=== PATIENT | male | born 1995 | race American Indian/Alaskan Native ===

== ENCOUNTER 2021-09-14 19:51 | Inpatient (IN) | payer SELFPAY ==
[2021-09-14] MEDS ORDERED: SODIUM CHLORIDE 0.9% 1000 ML 1,000 ML IV ONE (20:20)
[2021-09-14] MEDS ORDERED: cefTRIAXone/NS 2 GM/100 ML 2 GM/100 ML BAG IV ONE (20:20)
--- NOTE | 2021-09-14 20:35 | Emergency Department Report ---
ED Extremity Problem HPI - General Chief complaint: Extremity Injury, Lower Stated complaint: SWOLLEN RT CALF Time Seen by Provider: 09/14/21 20:16 Source: patient Mode of arrival: Ambulatory Limitations: No Limitations - History of Present Illness Initial comments: Patient is a 25-year-old male with a history of morbid obesity who presents emergency room with complaints of right calf pain and swelling that began 4 days ago. He states that a small blister appeared to the back of his calf and opened and drained on its own. He states it was clear fluid. He denies ever having this in the past. He denies injuring himself or being cut by anything. He denies any numbness or weakness. Patient states that he was running a fever at home but he reports he took Tylenol prior to arrival which she states improved his fever. No other past medical history. He denies any medication allergies. Severity scale (0 -10): 5 - Related Data Allergies Allergy/AdvReac Type Severity Reaction Status Date / Time No Known Allergies Allergy Verified 09/14/21 21:57 ED Review of Systems ROS: Stated complaint: SWOLLEN RT CALF Other details as noted in HPI Comment: All other systems reviewed and negative ED Past Medical Hx - Past Medical History Previous Medical History?: Yes Additional medical history: morbid obesity - Surgical History Past Surgical History?: No ED Physical Exam - General Limitations: No Limitations General appearance: alert, in no apparent distress - Head Head exam: Present: atraumatic, normocephalic - Eye Eye exam: Present: normal appearance - ENT ENT exam: Present: mucous membranes moist - Respiratory Respiratory exam: Present: normal lung sounds bilaterally. Absent: respiratory distress, wheezes, rales, rhonchi, stridor, chest wall tenderness, accessory muscle use, decreased breath sounds, prolonged expiratory - Cardiovascular Cardiovascular Exam: Present: regular rate, normal rhythm, normal heart sounds. Absent: systolic murmur, diastolic murmur, rubs, gallop - Extremities Exam Extremities exam: Present: other (there is a 3 cm shallow ulcer present to the right posterior calf, there is significant edema, induration, erythema present to the right calf, FROM, neurovascularly intact) - Neurological Exam Neurological exam: Present: alert, oriented X3 - Psychiatric Psychiatric exam: Present: normal affect, normal mood - Skin Skin exam: Present: warm, dry ED Course Vital Signs 09/14/21 20:08 Temperature 99.5 F Pulse Rate 102 H Respiratory 24 Rate Blood Pressure 136/79 [Right] O2 Sat by Pulse 100 Oximetry - Consultations Consultation #1: 09/14/21 21:[address] Eastman, hospitalist regarding pt presentation and results, will accept and resume care of patient, will admit to hospitalist service, advised to give zosyn instead of ceftriaxone, abx was changed. ED Medical Decision Making - Lab Data Result diagrams: 09/14/21 20:29 09/14/21 20:29 Lab Results 09/14/21 09/14/21 09/14/21 Range/Units 20:29 20:29 20:29 WBC 13.6 H (4.5-11.0) K/mm3 RBC 4.70 (3.65-5.03) M/mm3 Hgb 12.7 (11.8-15.2) gm/dl Hct 38.5 (35.5-45.6) % MCV 82 L (84-94) fl MCH 27 L (28-32) pg MCHC 33 (32-34) % RDW 13.9 (13.2-15.2) % Plt Count 352 (140-440) K/mm3 Add Manual Diff Complete Total Counted 100 Seg Neuts % (Manual) 89.0 H (40.0-70.0) % Band Neutrophils % 1.0 % Lymphocytes % (Manual) 6.0 L (13.4-35.0) % Monocytes % (Manual) 3.0 (0.0-7.3) % Eosinophils % (Manual) 1.0 (0.0-4.3) % Nucleated RBC % Not Reportable Seg Neutrophils # Man 12.1 H (1.8-7.7) K/mm3 Band Neutrophils # 0.1 K/mm3 Lymphocytes # (Manual) 0.8 L (1.2-5.4) K/mm3 Abs React Lymphs (Man) 0.0 K/mm3 Monocytes # (Manual) 0.4 (0.0-0.8) K/mm3 Eosinophils # (Manual) 0.1 (0.0-0.4) K/mm3 Basophils # (Manual) 0.0 (0.0-0.1) K/mm3 Metamyelocytes # 0.0 K/mm3 Myelocytes # 0.0 K/mm3 Promyelocytes # 0.0 K/mm3 Blast Cells # 0.0 K/mm3 WBC Morphology Not Reportable Hypersegmented Neuts Not Reportable Hyposegmented Neuts Not Reportable Hypogranular Neuts Not Reportable Smudge Cells Not Reportable Toxic Granulation Not Reportable Toxic Vacuolation Not Reportable Dohle Bodies Not Reportable Pelger-Huet Anomaly Not Reportable Radha Rods Not Reportable Platelet Estimate Appears normal Clumped Platelets Not Reportable Plt Clumps, EDTA Not Reportable Large Platelets Not Reportable Giant Platelets Not Reportable Platelet Satelliting Not Reportable Plt Morphology Comment Not Reportable RBC Morphology Not Reportable Dimorphic RBCs Not Reportable Polychromasia Not Reportable Hypochromasia Not Reportable Poikilocytosis Not Reportable Anisocytosis Not Reportable Microcytosis Not Reportable Macrocytosis Not Reportable Spherocytes Not Reportable Pappenheimer Bodies Not Reportable Sickle Cells Not Reportable Target Cells Not Reportable Tear Drop Cells Not Reportable Ovalocytes Not Reportable Helmet Cells Not Reportable Aqu[place] Bodies Not Reportable [place] Rings Not Reportable [place] Cells Not Reportable Bite Cells Not Reportable Crenated Cell Not Reportable Elliptocytes Not Reportable Acanthocytes (Spur) Not Reportable Rouleaux Not Reportable Hemoglobin C Crystals Not Reportable Schistocytes Not Reportable Malaria parasites Not Reportable Rene Bodies Not Reportable Hem Pathologist Commnt No Sodium 135 L (137-145) mmol/L Potassium 3.6 (3.6-5.0) mmol/L Chloride 98.3 (98-107) mmol/L Carbon Dioxide 23 (22-30) mmol/L Anion Gap 17 mmol/L BUN 9 (9-20) mg/dL Creatinine 0.9 (0.8-1.3) mg/dL Estimated GFR > 60 ml/min BUN/Creatinine Ratio 10 % Glucose 93 (75-100) mg/dL Lactic Acid 0.90 (0.7-2.0) mmol/L Calcium 9.1 (8.4-10.2) mg/dL Total Bilirubin 0.90 (0.1-1.2) mg/dL AST 32 (5-40) units/L ALT 45 (7-56) units/L Alkaline Phosphatase 99 (35-129) units/L Total Protein 9.0 H (6.3-8.2) g/dL Albumin 3.5 L (3.9-5) g/dL Albumin/Globulin Ratio 0.6 % - Radiology Data Radiology results: report reviewed Ordering Physician: FELICITY ZHAO Date of Service: 09/14/21 Procedure(s): XR tibia fibula 2V RT Accession Number(s): [id number] cc: FELICITY ZHAO Fluoro Time In Minutes: RIGHT TIBIA-FIBULA 2 VIEW(S) INDICATION / CLINICAL INFORMATION: right leg wound COMPARISON: None available. FINDINGS: BONES / JOINT(S): No acute fracture or subluxation. No significant arthritis. SOFT TISSUES: No significant abnormality. ADDITIONAL FINDINGS: None. Signer Name: Hector Gonzalez DO Signed: 09/14/2021 9:03 PM Workstation Name: [id number] Transcribed By: SAWYER Dictated By: HECTOR GONZALEZ DO Electronically Authenticated By: HECTOR GONZALEZ DO Signed Date/Time: 09/14/212102 DD/ 02 TD/TT: Ordering Physician: FELICITY ZHAO Date of Service: 09/14/21 Procedure(s): VL venous duplex LE RT Accession Number(s): [id number] cc: FELICITY ZHAO DUPLEX DOPPLER LOWER EXTREMITY VEINS, RIGHT INDICATION / CLINICAL INFORMATION: right leg swelling. TECHNIQUE: Duplex doppler imaging was performed through the veins of the right lower extremity using venous compression and other maneuvers. COMPARISON: None available. FINDINGS: RIGHT COMMON FEMORAL VEIN: Negative. RIGHT FEMORAL VEIN: Negative at the proximal level and not well evaluated distal to the proximal level. RIGHT POPLITEAL VEIN: Not well evaluated RIGHT CALF VEINS: Not well evaluated ADDITIONAL FINDINGS: Secondary to patient's swelling and body habitus large portion of the right leg is not well seen. IMPRESSION: 1. No sonographic evidence of DVT in the right common femoral or right proximal superficial femoral vein. Evaluation distal to this is limited secondary to swelling body habitus. Signer Name: Hector Gonzalez DO Signed: 09/14/2021 9:41 PM Workstation Name: [id number] Transcribed By: SAWYER Dictated By: HECTOR GONZALEZ DO Electronically Authenticated By: HECTOR GONZALEZ DO Signed Date/Time: 09/14/212140 DD/ 38 TD/TT: - Medical Decision Making Patient is a 25-year-old male with a history of morbid obesity who presents emergency room with complaints of right calf pain and swelling that began 4 days ago. He states that a small blister appeared to the back of his calf and opened and drained on its own. He states it was clear fluid. He denies ever having this in the past. He denies injuring himself or being cut by anything. He denies any numbness or weakness. Patient states that he was running a fever at home but he reports he took Tylenol prior to arrival which she states improved his fever. No other past medical history. He denies any medication allergies. Vitals with very mild tachycardia, otherwise stable. On exam:there is a 3 cm shallow ulcer present to the right posterior calf, there is significant edema, induration, erythema present to the right calf, FROM, neurovascularly intact. XR right lower leg: BONES / JOINT(S): No acute fracture or subluxation. No significant arthritis. SOFT TISSUES: No significant abno rmality. ADDITIONAL FINDINGS: None. doppler US: 1. No sonographic evidence of DVT in the right common femoral or right proximal superficial femoral vein. Evaluation distal to this is limited secondary to swelling body habitus. Patient needs admission for cellulitis, ordered IV antibiotics. Discussed case with Dr. Mora, ER attending who is agreeable with plan and agrees that patient needs to be admitted for IV antibiotic therapy. spoke to Dr. Eastman, hospitalist regarding pt presentation and results, will accept and resume care of patient, will admit to hospitalist service, advised to give zosyn instead of ceftriaxone, abx was changed. pt is agreeable with admission. Critical care attestation.: If time is entered above; I have spent that time in minutes in the direct care of this critically ill patient, excluding procedure time. ED Disposition Clinical Impression: Cellulitis Qualifiers: Site of cellulitis: extremity Site of cellulitis of extremity: lower extremity Laterality: right Qualified Code(s): L03.115 - Cellulitis of right lower limb Leg pain Qualifiers: Laterality: right Qualified Code(s): M79.604 - Pain in right leg Leukocytosis Qualifiers: Leukocytosis type: unspecified Qualified Code(s): D72.829 - Elevated white blood cell count, unspecified Disposition: 02 [facility]ORT TERM [facility] Is pt being admited?: Yes Does the pt Need Aspirin: No Condition: Fair Referrals: PRIMARY CARE, [Primary Care Provider] - 3-5 Days Time of Disposition: 22:01 Print Language: [place]CI[place]
[2021-09-14 20:45] LABS: Hematocrit 38.5 % (35.5-45.6); Hemoglobin 12.7 gm/dl (11.8-15.2); Mean Corpuscular HGB Conc 33 % (32-34); Mean Corpuscular Volume 82 fl (84-94); Platelet Count 352 K/mm3 (140-440); Red Cell Distribution Width 13.9 % (13.2-15.2)
[2021-09-14] MEDS ORDERED: VANCOMYCIN PHARMACY TO DOSE IV SCH (21:00)
--- NOTE | 2021-09-14 21:07 | XRay Report ---
RIGHT TIBIA-FIBULA 2 VIEW(S) INDICATION / CLINICAL INFORMATION: right leg wound COMPARISON: None available. FINDINGS: BONES / JOINT(S): No acute fracture or subluxation. No significant arthritis. SOFT TISSUES: No significant abnormality. ADDITIONAL FINDINGS: None. Signer Name: Hector Mar DO Signed: 09/14/2021 9:03 PM Workstation Name: [id number]
[2021-09-14 21:10] LABS: Alanine Aminotransferase 45 units/L (7-56); Albumin 3.5 g/dL (3.9-5); BUN/Creatinine Ratio 10; Blood Urea Nitrogen 9 mg/dL (9-20); Calcium 9.1 mg/dL (8.4-10.2); Hemolysis Index 1
[2021-09-14 21:35] LABS: Band Neutrophils # (Manual) 0.1 K/mm3; Total Cells Counted 100
--- NOTE | 2021-09-14 21:45 | Vascular Lab Report ---
DUPLEX DOPPLER LOWER EXTREMITY VEINS, RIGHT INDICATION / CLINICAL INFORMATION: right leg swelling. TECHNIQUE: Duplex doppler imaging was performed through the veins of the right lower extremity using venous compression and other maneuvers. COMPARISON: None available. FINDINGS: RIGHT COMMON FEMORAL VEIN: Negative. RIGHT FEMORAL VEIN: Negative at the proximal level and not well evaluated distal to the proximal leve l. RIGHT POPLITEAL VEIN: Not well evaluated RIGHT CALF VEINS: Not well evaluated ADDITIONAL FINDINGS: Secondary to patient's swelling and body habitus large portion of the right leg is not well seen. IMPRESSION: 1. No sonographic evidence of DVT in the right common femoral or right proximal superficial femoral v ein. Evaluation distal to this is limited secondary to swelling body habitus. Signer Name: Hector Mar DO Signed: 09/14/2021 9:41 PM Workstation Name: [id number]
--- NOTE | 2021-09-14 21:51 | Event Note ---
Date of service: 09/14/21 Face to Face: For this encounter I have reviewed the PA/EDUCATIONAL PROGRAM ASSISTANT documentation, treatment plan, medical decision making, and I had face to face time with this patient. 25-year-old male presents with chief complaint of right lower extremity pain. No known injury. Erythema with central ulceration. Will admit for cellulitis
[2021-09-14] MEDS ORDERED: PIPERACIL/TAZOBACTA 4.5/NS 100 4.5 GM/100 ML VIAL IV ONE (21:52)
[2021-09-14] MEDS ORDERED: VANCOMYCIN 2,000 MG in SODIUM CHLORIDE 0.9% 500 ML 500 ML IV ONE (22:00)
[2021-09-14] MEDS ORDERED: ALBUTEROL 2.5 MG/3 ML NEBU IH PRN (22:01)
[2021-09-14] MEDS ORDERED: ACETAMINOPHEN 325 MG TAB PO PRN (22:01)
[2021-09-14] MEDS ORDERED: ONDANSETRON 4 MG/2 ML INJ IV PRN (22:01)
[2021-09-14] MEDS ORDERED: HYDROmorphone 1 MG/1 ML INJ IV PRN (22:01)
[2021-09-14] MEDS ORDERED: oxyCODONE /ACETAMINOPHEN 5-325MG TAB PO PRN (22:01)
--- NOTE | 2021-09-14 22:08 | History and Physical Report ---
History of Present Illness Date of examination: 09/14/21 Date of admission: 09/14/21 Chief complaint: Cellulitis of the right lower extremity History of present illness: 25-year-old male with a history of morbid obesity was brought to the emergency room because of right calf pain and swelling that began 4 days ago. He states that a small blister appeared to the back of his calf and opened and drained on its own. He states it was clear fluid. He denies ever having this in the past. He denies injuring himself or being cut by anything. He denies any numbness or weakness. Patient states that he was running a fever at home but he reports he took Tylenol prior to arrival which she states improved his fever. In the emergency room patient is found to have cellulitis of the right lower extremity. Venous duplex of the leg showed no DVT. Med rec is not available Past History Past Medical History: other (Morbid obesity) Medications and Allergies Allergies Allergy/AdvReac Type Severity Reaction Status Date / Time No Known Allergies Allergy Verified 09/14/21 21:57 Active Meds: Active Medications Piperacillin Sod/Tazobactam Sod (Zosyn/Ns 4.5gm/100ml) 4.5 gm in 100 mls @ 200 mls/hr IV ONCE ONE; Protocol Stop: 09/14/21 22:21 Vancomycin HCl 2,000 mg/ (Sodium Chloride) 540 mls @ 250 mls/hr IV ONCE ONE Stop: 09/15/21 00:09 Review of Systems All systems: negative Musculoskeletal: other (Edema cellulitis of the right lower extremity. Lymphedema) Exam - Constitutional Vitals: Temp Pulse Resp BP Pulse Ox 99.5 F 102 H 24 136/79 100 09/14/21 20:08 09/14/21 20:08 09/14/21 20:08 09/14/21 20:08 09/14/21 20:08 General appearance: Present: no acute distress, well-nourished - EENT Eyes: Present: PERRL ENT: hearing intact, clear oral mucosa - Neck Neck: Present: supple, normal ROM - Respiratory Respiratory effort: normal Respiratory: bilateral: CTA - Cardiovascular Heart Sounds: Present: S1 & S2. Absent: rub, click - Extremities Extremities: pulses symmetrical, No edema Extremity abnormal: edema, erythema, black Peripheral Pulses: within normal limits - Abdominal General gastrointestinal: Present: soft, non-tender, non-distended, normal bowel sounds Male genitourinary: Present: normal - Integumentary Integumentary: Present: clear, warm, dry - Musculoskeletal Musculoskeletal: gait normal, strength equal bilaterally - Psychiatric Psychiatric: appropriate mood/affect, intact judgment & insight - Neurologic Neurologic: CNII-XII intact, moves all extremities Results - Labs CBC & Chem 7: 09/14/21 20:29 09/14/21 20: Labs: Laboratory Last Values WBC 13.6 K/mm3 (4.5-11.0) H 09/14/21 20: RBC 4.70 M/mm3 (3.65-5.03) 09/14/21: Hgb 12.7 gm/dl (11.8-15.2) 09/14/21 20: Hct 38.5 % (35.5-45.6) 09/14/21 20: MCV 82 fl (84-94) L 09/14/21 20: MCH 27 pg (28-32) L 09/14/21 20: MCHC 33 % (32-34) 09/14/21 20: RDW 13.9 % (13.2-15.2) 09/14/21: Plt Count 352 K/mm3 (140-440) 09/14/21 20: Add Manual Diff Complete 09/14/21: Total Counted 100 09/14/21: Seg Neuts % (Manual) 89.0 % (40.0-70.0) H 09/14/21 20: Band Neutrophils % 1.0 % 09/14/21 20: Lymphocytes % (Manual) 6.0 % (13.4-35.0) L 09/14/21 20: Monocytes % (Manual) 3.0 % (0.0-7.3) 09/14/21 20: Eosinophils % (Manual) 1.0 % (0.0-4.3) 09/14/21 20: Nucleated RBC % Not Reportable 09/14/21: Seg Neutrophils # Man 12.1 K/mm3 (1.8-7.7) H 09/14/21 20: Band Neutrophils # 0.1 K/mm3 09/14/21 20:29 Lymphocytes # (Manual) 0.8 K/mm3 (1.2-5.4) L 09/14/21 20:29 Abs React Lymphs (Man) 0.0 K/mm3 09/14/21 20:29 Monocytes # (Manual) 0.4 K/mm3 (0.0-0.8) 09/14/21 20:29 Eosinophils # (Manual) 0.1 K/mm3 (0.0-0.4) 09/14/21 20: Basophils # (Manual) 0.0 K/mm3 (0.0-0.1) 09/14/21 20:29 Metamyelocytes # 0.0 K/mm3 09/14/21 20: Myelocytes # 0.0 K/mm3 09/14/21 20: Promyelocytes # 0.0 K/mm3 09/14/21 20:29 Blast Cells # 0.0 K/mm3 09/14/21 20:29 WBC Morphology Not Reportable 09/14/21 20:29 Hypersegmented Neuts Not Reportable 09/14/21 20:29 Hyposegmented Neuts Not Reportable 09/14/21 20:29 Hypogranular Neuts Not Reportable 09/14/21 20:29 Smudge Cells Not Reportable 09/14/21 20:29 Toxic Granulation Not Reportable 09/14/21 20:29 Toxic Vacuolation Not Reportable 09/14/21 20:29 Dohle Bodies Not Reportable 09/14/21 20:29 Pelger-Huet Anomaly Not Reportable 09/14/21 20:29 Radha Rods Not Reportable 09/14/21 20:29 Platelet Estimate Appears normal 09/14/21 20:29 Clumped Platelets Not Reportable 09/14/21 20:29 Plt Clumps, EDTA Not Reportable 09/14/21 20:29 Large Platelets Not Reportable 09/14/21 20:29 Giant Platelets Not Reportable 09/14/21 20:29 Platelet Satelliting Not Reportable 09/14/21 20:29 Plt Morphology Comment Not Reportable 09/14/21 20:29 RBC Morphology Not Reportable 09/14/21 20:29 Dimorphic RBCs Not Reportable 09/14/21 20:29 Polychromasia Not Reportable 09/14/21 20:29 Hypochromasia Not Reportable 09/14/21 20:29 Poikilocytosis Not Reportable 09/14/21 20:29 Anisocytosis Not Reportable 09/14/21 20:29 Microcytosis Not Reportable 09/14/21 20:29 Macrocytosis Not Reportable 09/14/21 20:29 Spherocytes Not Reportable 09/14/21 20:29 Pappenheimer Bodies Not Reportable 09/14/21 20:29 Sickle Cells Not Reportable 09/14/21 20:29 Target Cells Not Reportable 09/14/21 20:29 Tear Drop Cells Not Reportable 09/14/21 20:29 Ovalocytes Not Reportable 09/14/21 20:29 Helmet Cells Not Reportable 09/14/21 20:29 Aquino-[place] Bodies Not Reportable 09/14/21 20:29 [place] Rings Not Reportable 09/14/21 20:29 [place] Cells Not Reportable 09/14/21 20:29 Bite Cells Not Reportable 09/14/21 20:29 Crenated Cell Not Reportable 09/14/21 20:29 Elliptocytes Not Reportable 09/14/21 20:29 Acanthocytes (Spur) Not Reportable 09/14/21 20:29 Rouleaux Not Reportable 09/14/21 20:29 Hemoglobin C Crystals Not Reportable 09/14/21 20:29 Schistocytes Not Reportable 09/14/21 20:29 Malaria parasites Not Reportable 09/14/21 20:29 Rene Bodies Not Reportable 09/14/21 20:29 Hem Pathologist Commnt No 09/14/21 20:29 Sodium 135 mmol/L (137-145) L 09/14/21 20:29 Potassium 3.6 mmol/L (3.6-5.0) 09/14/21 20:29 Chloride 98.3 mmol/L (98-107) 09/14/21 20:29 Carbon Dioxide 23 mmol/L (22-30) 09/14/21 20:29 Anion Gap 17 mmol/L 09/14/21 20:29 BUN 9 mg/dL (9-20) 09/14/21 20:29 Creatinine 0.9 mg/dL (0.8-1.3) 09/14/21 20:29 Estimated GFR > 60 ml/min 09/14/21 20:29 BUN/Creatinine Ratio 10 % 09/14/21 20:29 Glucose 93 mg/dL (75-100) 09/14/21 20:29 Lactic Acid 0.90 mmol/L (0.7-2.0) 09/14/21 20:29 Calcium 9.1 mg/dL (8.4-10.2) 09/14/21 20:29 Total Bilirubin 0.90 mg/dL (0.1-1.2) 09/14/21 20:29 AST 32 units/L (5-40) 09/14/21 20:29 ALT 45 units/L (7-56) 09/14/21 20:29 Alkaline Phosphatase 99 units/L (35-129) 09/14/21 20:29 Total Protein 9.0 g/dL (6.3-8.2) H 09/14/21 20:29 Albumin 3.5 g/dL (3.9-5) L 09/14/21 20:29 Albumin/Globulin Ratio 0.6 % 09/14/21 20:29 - Imaging and Cardiology Venous US: report reviewed Assessment and Plan VTE prophylaxis?: Chemical Plan of care discussed with patient/family: Yes - Patient Problems (1) Cellulitis of leg, right Current Visit: Yes Status: Acute Plan to address problem: Admit the patient to the [facility]. Vancomycin 1 g IV every 12 hours and Zosyn 4.5 g IV every 8 hours. Blood culture wound culture. Will consult wound care nurse evaluation. Recheck BMP in the morning (2) Morbid obesity Current Visit: Yes Status: Acute Plan to address problem: We counseled regarding weight reduction. Outpatient follow-up with bariatric surgeon (3) Leukocytosis Current Visit: Yes Status: Acute Plan to address problem: Vancomycin 1 g IV every 12 hours and Zosyn 4.5 g IV every 8 hours. Blood culture wound culture. Recheck CBC in the morning (4) DVT prophylaxis Current Visit: Yes Status: Acute Plan to address problem: Heparin 5000 units subcu every 8 hours for DVT prophylaxis. Pepcid 20 mg p.o. twice daily for GI prophylaxis. Patient is a full code
[2021-09-14] MEDS ORDERED: VANCOMYCIN/NS 1 GM/250 ML 1 GM/250 ML BAG IV SCH (23:00)
[2021-09-15] MEDS ORDERED: IPRATROPIUM/ALBUTEROL SULFATE 3 ML AMPUL.NEB IH SCH (02:00)
[2021-09-15 05:04] LABS: Blood Urea Nitrogen 8 mg/dL (9-20); Calcium 8.7 mg/dL (8.4-10.2); Hemolysis Index 1
[2021-09-15 05:07] LABS: BUN/Creatinine Ratio 11
[2021-09-15] MEDS: PIPERACIL/TAZOBACTA 4.5/NS 100 4.5 GM/100 ML VIAL IV SCH ×3 (05:25→22:11)
[2021-09-15] MEDS: HEPARIN 5,000 UNIT/1 ML VIAL SUB-Q SCH ×3 (05:27→22:12)
[2021-09-15] MEDS: FAMOTIDINE 20 MG TAB PO SCH ×2 (09:04→22:12)
[2021-09-15 09:37] LABS: Hematocrit 36.4 % (35.5-45.6); Hemoglobin 12.1 gm/dl (11.8-15.2); Mean Corpuscular HGB Conc 33 % (32-34); Mean Corpuscular Volume 82 fl (84-94); Platelet Count 351 K/mm3 (140-440); Red Blood Count 4.45 M/mm3 (3.65-5.03); Red Cell Distribution Width 14.1 % (13.2-15.2)
[2021-09-15 10:56] LABS: Total Cells Counted 100
[2021-09-15 10:57] LABS: Platelet Estimate Consistent w Auto; RBC Morphology Normal
[2021-09-15] MEDS: VANCOMYCIN 2,000 MG in SODIUM CHLORIDE 0.9% 500 ML 500 ML IV SCH ×2 (11:34→22:12)
--- NOTE | 2021-09-15 19:20 | Progress Note ---
Assessment and Plan Assessment and plan: 25-year-old male with a history of morbid obesity was brought to the emergency room because of right calf pain and swelling that began 4 days ago. He states that a small blister appeared to the back of his calf and opened and drained on its own. He states it was clear fluid. He denies ever having this in the past. He denies injuring himself or being cut by anything. He denies any numbness or weakness. Patient states that he was running a fever at home but he reports he took Tylenol prior to arrival which she states improved his fever. In the emergency room patient is found to have cellulitis of the right lower extremity. Venous duplex of the leg showed no DVT. (1) Cellulitis of leg, left Current Visit: Yes Status: Acute Plan to address problem: Patient presents with Restless Left Calf with Drainage and Pain. Afebrile and Leukocytosis Improving. Continue vancomycin and Zosyn 4.5 g IV every 8 hours. Blood culture wound culture. Will consult wound care nurse evaluation. Order CT to rule out abscess. (2) extremely morbid obesity, BMI 60 Current Visit: Yes Status: Acute Plan to address problem: We counseled regarding weight reduction. Outpatient follow-up with bariatric surgeon (3) Leukocytosis, improving Current Visit: Yes Status: Acute Plan to address problem: (4) DVT prophylaxis Current Visit: Yes Status: Acute Plan to address problem: Heparin 5000 units subcu every 8 hours for DVT prophylaxis. Pepcid 20 mg p.o. twice daily for GI prophylaxis. Patient is a full code History Interval history: Patient has a ruptured blisters on left with some drainage and pain but no significant erythema. Respiratory leukocytosis improving. Blood cultures negative today. Hospitalist Physical - Constitutional Vitals: Temp Pulse Resp BP Pulse Ox 98.0 F 88 20 125/78 98 09/15/21 16:44 09/15/21 16:44 09/15/21 16:44 09/15/21 16:44 09/15/21 17:00 General appearance: Present: no acute distress, obese, other (Supraglottis, BMI 60) - EENT Eyes: Present: PERRL, EOM intact ENT: hearing intact - Neck Neck: Present: supple - Respiratory Respiratory effort: normal Respiratory: bilateral: CTA - Cardiovascular Rhythm: regular - Extremities Extremity abnormal: edema - Abdominal General gastrointestinal: soft, non-tender - Integumentary Integumentary: Present: warm - Psychiatric Psychiatric: appropriate mood/affect - Neurologic Neurologic: no focal deficits Results - Labs CBC & Chem 7: 09/17/21 05:00 09/16/21 09:32 Labs: Laboratory Last Values WBC 13.9 K/mm3 (4.5-11.0) H 09/15/21 04:20 RBC 4.45 M/mm3 (3.65-5.03) 09/15/21 04:20 Hgb 12.1 gm/dl (11.8-15.2) 09/15/21 04:20 Hct 36.4 % (35.5-45.6) 09/15/21 04:20 MCV 82 fl (84-94) L 09/15/21 04:20 MCH 27 pg (28-32) L 09/15/21 04:20 MCHC 33 % (32-34) 09/15/21 04:20 RDW 14.1 % (13.2-15.2) 09/15/21 04:20 Plt Count 351 K/mm3 (140-440) 09/15/21 04:20 Add Manual Diff Complete 09/15/21 04:20 Total Counted 100 09/15/21 04:20 Seg Neuts % (Manual) 84.0 % (40.0-70.0) H 09/15/21 04:20 Band Neutrophils % 1.0 % 09/14/21 20:29 Lymphocytes % (Manual) 6.0 % (13.4-35.0) L 09/15/21 04:20 Reactive Lymphs % (Man) 2.0 % 09/15/21 04:20 Monocytes % (Manual) 2.0 % (0.0-7.3) 09/15/21 04:20 Eosinophils % (Manual) 4.0 % (0.0-4.3) 09/15/21 04:20 Metamyelocytes % 2.0 % 09/15/21 04:20 Nucleated RBC % 1.0 % (0.0-0.9) H 09/15/21 04:20 Seg Neutrophils # Man 11.7 K/mm3 (1.8-7.7) H 09/15/21 04:20 Band Neutrophils # 0.0 K/mm3 09/15/21 04:20 Lymphocytes # (Manual) 0.8 K/mm3 (1.2-5.4) L 09/15/21 04:20 Abs React Lymphs (Man) 0.3 K/mm3 09/15/21 04:20 Monocytes # (Manual) 0.3 K/mm3 (0.0-0.8) 09/15/21 04:20 Eosinophils # (Manual) 0.6 K/mm3 (0.0-0.4) H 09/15/21 04:20 Basophils # (Manual) 0.0 K/mm3 (0.0-0.1) 09/15/21 04:20 Metamyelocytes # 0.3 K/mm3 09/15/21 04:20 Myelocytes # 0.0 K/mm3 09/15/21 04:20 Promyelocytes # 0.0 K/mm3 09/15/21 04:20 Blast Cells # 0.0 K/mm3 09/15/21 04:20 WBC Morphology Not Reportable 09/15/21 04:20 WBC Morphology TNR 09/15/21 04:20 Hypersegmented Neuts Not Reportable 09/15/21 04:20 Hyposegmented Neuts Not Reportable 09/15/21 04:20 Hypogranular Neuts Not Reportable 09/15/21 04:20 Smudge Cells Not Reportable 09/15/21 04:20 Toxic Granulation Not Reportable 09/15/21 04:20 Toxic Vacuolation Not Reportable 09/15/21 04:20 Dohle Bodies Not Reportable 09/15/21 04:20 Pelger-Huet Anomaly Not Reportable 09/15/21 04:20 Radha Rods Not Reportable 09/15/21 04:20 Platelet Estimate Consistent w auto 09/15/21 04:20 Clumped Platelets Not Reportable 09/15/21 04:20 Plt Clumps, EDTA Not Reportable 09/15/21 04:20 Large Platelets Not Reportable 09/15/21 04:20 Giant Platelets Not Reportable 09/15/21 04:20 Platelet Satelliting Not Reportable 09/15/21 04:20 Plt Morphology Comment Not Reportable 09/15/21 04:20 RBC Morphology Normal 09/15/21 04:20 Dimorphic RBCs Not Reportable 09/15/21 04:20 Polychromasia Not Reportable 09/15/21 04:20 Hypochromasia Not Reportable 09/15/21 04:20 Poikilocytosis Not Reportable 09/15/21 04:20 Anisocytosis Not Reportable 09/15/21 04:20 Microcytosis Not Reportable 09/15/21 04:20 Macrocytosis Not Reportable 09/15/21 04:20 Spherocytes Not Reportable 09/15/21 04:20 Pappenheimer Bodies Not Reportable 09/15/21 04:20 Sickle Cells Not Reportable 09/15/21 04:20 Target Cells Not Reportable 09/15/21 04:20 Tear Drop Cells Not Reportable 09/15/21 04:20 Ovalocytes Not Reportable 09/15/21 04:20 Helmet Cells Not Reportable 09/15/21 04:20 [place] Bodies Not Reportable 09/15/21 04:20 [place] Rings Not Reportable 09/15/21 04:20 [place] Cells Not Reportable 09/15/21 04:20 Bite Cells Not Reportable 09/15/21 04:20 Crenated Cell Not Reportable 09/15/21 04:20 Elliptocytes Not Reportable 09/15/21 04:20 Acanthocytes (Spur) Not Reportable 09/15/21 04:20 Rouleaux Not Reportable 09/15/21 04:20 Hemoglobin C Crystals Not Reportable 09/15/21 04:20 Schistocytes Not Reportable 09/15/21 04:20 Malaria parasites Not Reportable 09/15/21 04:20 Rene Bodies Not Reportable 09/15/21 04:20 Hem Pathologist Commnt No 09/15/21 04:20 Sodium 136 mmol/L (137-145) L 09/15/21 04:20 Potassium 3.6 mmol/L (3.6-5.0) 09/15/21 04:20 Chloride 100.1 mmol/L (98-107) 09/15/21 04:20 Carbon Dioxide 23 mmol/L (22-30) 09/15/21 04:20 Anion Gap 17 mmol/L 09/15/21 04:20 BUN 8 mg/dL (9-20) L 09/15/21 04:20 Creatinine 0.7 mg/dL (0.8-1.3) L 09/15/21 04:20 Estimated GFR > 60 ml/min 09/15/21 04:20 BUN/Creatinine Ratio 11 % 09/15/21 04:20 Glucose 98 mg/dL (75-100) 09/15/21 04:20 Lactic Acid 0.90 mmol/L (0.7-2.0) 09/14/21 20:29 Calcium 8.7 mg/dL (8.4-10.2) 09/15/21 04:20 Total Bilirubin 0.90 mg/dL (0.1-1.2) 09/14/21 20:29 AST 32 units/L (5-40) 09/14/21 20:29 ALT 45 units/L (7-56) 09/14/21 20:29 Alkaline Phosphatase 99 units/L (35-129) 09/14/21 20:29 Total Protein 9.0 g/dL (6.3-8.2) H 09/14/21 20:29 Albumin 3.5 g/dL (3.9-5) L 09/14/21 20:29 Albumin/Globulin Ratio 0.6 % 09/14/21 20:29 Microbiology: Microbiology 09/14/21 20:29 Peripheral/Venous Blood Culture - Preliminary Culture in Progress 09/14/21 20:29 Peripheral/Venous Blood Culture - Preliminary Culture in Progress Car[place]llo/IV: Voiding Method Toilet Active Medications - Current Medications Current Medications: Generic Name Dose Route Start Last Admin Trade Name Freq PRN Reason Stop Dose Admin Acetaminophen 650 mg 09/14/21 22:01 Acetaminophen 325 Mg Tab PO Q4H PRN Pain MILD(1-3)/Fever >100.5/MOYER Albuterol 2.5 mg 09/14/21 22:01 Albuterol 2.5 Mg/3 Ml Nebu IH Q4HRT PRN Shortness Of Breath Famotidine 20 mg 09/15/21 10:00 09/15/21 09:04 Famotidine 20 Mg Tab PO 20 mg BID DUSTY Administration Heparin Sodium (Porcine) 5,000 unit 09/15/21 06:00 09/15/21 13:36 Heparin 5,000 Unit/1 Ml Vial SUB-Q 5,000 unit Q8HR DUSTY Administration Hydromorphone HCl 0.5 mg 09/14/21 22:01 Hydromorphone 1 Mg/1 Ml Inj IV Q3H PRN Pain , Severe (7-10) Piperacillin Sod/Tazobactam Sod 4.5 gm in 100 mls @ 200 mls/hr 09/15/21 06:00 09/15/21 13:35 Zosyn/Ns 4.5gm/100ml IV 200 mls/hr Q8H DUSTY Administration Protocol Vancomycin HCl 2,000 mg/ 540 mls @ 250 mls/hr 09/15/21 11:00 09/15/21 11:34 Sodium Chloride IV 250 mls/hr Q12H DUSTY Administration Ondansetron HCl 4 mg 09/14/21 22:01 Ondansetron 4 Mg/2 Ml Inj IV Q8H PRN Nausea And Vomiting Oxycodone/Acetaminophen 1 tab 09/14/21 22:01 Oxycodone /Acetaminophen 5-325mg Tab PO Q6H PRN Pain, Moderate (4-6) Sodium Chloride 10 ml 09/15/21 10:00 09/15/21 09:04 Sodium Chloride 0.9% 10 Ml Flush Syringe IV 10 ml BID DUSTY Administration Sodium Chloride 10 ml 09/14/21 22:01 Sodium Chloride 0.9% 10 Ml Flush Syringe IV PRN PRN LINE FLUSH
[2021-09-16] MEDS: HEPARIN 5,000 UNIT/1 ML VIAL SUB-Q SCH ×3 (05:34→21:00)
[2021-09-16] MEDS: PIPERACIL/TAZOBACTA 4.5/NS 100 4.5 GM/100 ML VIAL IV SCH ×2 (05:34→14:00)
[2021-09-16] MEDS: FAMOTIDINE 20 MG TAB PO SCH ×2 (09:50→21:01)
[2021-09-16] MEDS: VANCOMYCIN 2,000 MG in SODIUM CHLORIDE 0.9% 500 ML 500 ML IV SCH ×2 (10:06→22:49)
[2021-09-16 10:38] LABS: Alanine Aminotransferase 47 units/L (7-56); Albumin 3.6 g/dL (3.9-5); Blood Urea Nitrogen 8 mg/dL (9-20); Calcium 8.7 mg/dL (8.4-10.2); Hemolysis Index 0
[2021-09-16 10:46] LABS: BUN/Creatinine Ratio 11
[2021-09-16] MEDS: AMPICILLIN/SULBACTA 3GM/100ML 3 GM/100 ML BAG IV SCH (21:01)
[2021-09-17 05:35] LABS: Basophils # (Auto) 0.1 K/mm3 (0.0-0.1); Basophils % (Auto) 1.2 % (0.0-1.8); Eosinophils # (Auto) 0.2 K/mm3 (0.0-0.4); Eosinophils % (Auto) 2.1 % (0.0-4.3); Hematocrit 34.8 % (35.5-45.6); Hemoglobin 11.4 gm/dl (11.8-15.2); Lymphocytes # (Auto) 2.1 K/mm3 (1.2-5.4); Lymphocytes % (Auto) 28.3 % (13.4-35.0); Mean Corpuscular HGB Conc 33 % (32-34); Mean Corpuscular Volume 83 fl (84-94); Monocytes # (Auto) 0.8 K/mm3 (0.0-0.8); Monocytes % (Auto) 10.6 % (0.0-7.3); Platelet Count 362 K/mm3 (140-440); Red Blood Count 4.17 M/mm3 (3.65-5.03); Red Cell Distribution Width 13.7 % (13.2-15.2)
--- NOTE | 2021-09-17 07:29 | Progress Note ---
Assessment and Plan Assessment and plan: 25-year-old male with a history of morbid obesity was brought to the emergency room because of right calf pain and swelling that began 4 days ago. He states that a small blister appeared to the back of his calf and opened and drained on its own. He states it was clear fluid. He denies ever having this in the past. He denies injuring himself or being cut by anything. He denies any numbness or weakness. Patient states that he was running a fever at home but he reports he took Tylenol prior to arrival which she states improved his fever. In the emergency room patient is found to have cellulitis of the right lower extremity. Venous duplex of the leg showed no DVT. (1) Cellulitis of leg, left Current Visit: Yes Status: Acute Plan to address problem: Patient presents with Restless Left Calf with Drainage and Pain. Afebrile and Leukocytosis Improving. Continue vancomycin and change Zosyn to Unasyn. Wound culture ordered but not performed by the nursing. Blood cultures pending. Will consult wound care nurse evaluation. Ultrasound negative for DVT. Ordered CT but could not be performed due to body habitus and ultrasound ordered to rule out abscess. (2) extremely morbid obesity, BMI 60 Current Visit: Yes Status: Acute Plan to address problem: We counseled regarding weight reduction. Outpatient follow-up with bariatric surgeon (3) Leukocytosis, improving Current Visit: Yes Status: Acute Plan to address problem: (4) DVT prophylaxis Current Visit: Yes Status: Acute Plan to address problem: Heparin 5000 units subcu every 8 hours for DVT prophylaxis. Pepcid 20 mg p.o. twice daily for GI prophylaxis. Patient is a full code History Interval history: Patient has a ruptured blisters on left calf with some drainage and pain but no significant erythema. Remains afebrile. Leukocytosis improving. Blood cultures negative today. CT of left calf ordered but could not be performed due to body habitus. Ultrasound ordered to rule out abscess. Hospitalist Physical - Constitutional Vitals: Temp Pulse Resp BP Pulse Ox 98.1 F 87 20 149/83 94 09/17/21 06:36 09/17/21 06:36 09/17/21 06:36 09/17/21 06:36 09/17/21 06:36 General appearance: Present: no acute distress, obese, other (Supraglottis, BMI 60) - EENT Eyes: Present: PERRL, EOM intact ENT: hearing intact - Neck Neck: Present: supple - Respiratory Respiratory effort: normal Respiratory: bilateral: CTA - Cardiovascular Rhythm: regular - Extremities Extremity abnormal: edema - Abdominal General gastrointestinal: soft, non-tender - Integumentary Integumentary: Present: warm - Psychiatric Psychiatric: appropriate mood/affect - Neurologic Neurologic: no focal deficits Results - Labs CBC & Chem 7: 09/17/21 05:00 09/16/21 09:32 Labs: Laboratory Last Values WBC 7.5 K/mm3 (4.5-11.0) 09/17/21 05:00 RBC 4.17 M/mm3 (3.65-5.03) 09/17/21 05:00 Hgb 11.4 gm/dl (11.8-15.2) L 09/17/21 05:00 Hct 34.8 % (35.5-45.6) L 09/17/21 05:00 MCV 83 fl (84-94) L 09/17/21 05:00 MCH 27 pg (28-32) L 09/17/21 05:00 MCHC 33 % (32-34) 09/17/21 05:00 RDW 13.7 % (13.2-15.2) 09/17/21 05:00 Plt Count 362 K/mm3 (140-440) 09/17/21 05:00 Lymph % (Auto) 28.3 % (13.4-35.0) 09/17/21 05:00 [place] % (Auto) 10.6 % (0.0-7.3) H 09/17/21 05:00 Eos % (Auto) 2.1 % (0.0-4.3) 09/17/21 05:00 Baso % (Auto) 1.2 % (0.0-1.8) 09/17/21 05:00 Lymph # (Auto) 2.1 K/mm3 (1.2-5.4) 09/17/21 05:00 [place] # (Auto) 0.8 K/mm3 (0.0-0.8) 09/17/21 05:00 Eos # (Auto) 0.2 K/mm3 (0.0-0.4) 09/17/21 05:00 Baso # (Auto) 0.1 K/mm3 (0.0-0.1) 09/17/21 05:00 Add Manual Diff Complete 09/15/21 04:20 Total Counted 100 09/15/21 04:20 Seg Neutrophils % 57.8 % (40.0-70.0) 09/17/21 05:00 Seg Neuts % (Manual) 84.0 % (40.0-70.0) H 09/15/21 04:20 Band Neutrophils % 1.0 % 09/14/21 20:29 Lymphocytes % (Manual) 6.0 % (13.4-35.0) L 09/15/21 04:20 Reactive Lymphs % (Man) 2.0 % 09/15/21 04:20 Monocytes % (Manual) 2.0 % (0.0-7.3) 09/15/21 04:20 Eosinophils % (Manual) 4.0 % (0.0-4.3) 09/15/21 04:20 Metamyelocytes % 2.0 % 09/15/21 04:20 Nucleated RBC % 1.0 % (0.0-0.9) H 09/15/21 04:20 Seg Neutrophils # 4.3 K/mm3 (1.8-7.7) 09/17/21 05:00 Seg Neutrophils # Man 11.7 K/mm3 (1.8-7.7) H 09/15/21 04:20 Band Neutrophils # 0.0 K/mm3 09/15/21 04:20 Lymphocytes # (Manual) 0.8 K/mm3 (1.2-5.4) L 09/15/21 04:20 Abs React Lymphs (Man) 0.3 K/mm3 09/15/21 04:20 Monocytes # (Manual) 0.3 K/mm3 (0.0-0.8) 09/15/21 04:20 Eosinophils # (Manual) 0.6 K/mm3 (0.0-0.4) H 09/15/21 04:20 Basophils # (Manual) 0.0 K/mm3 (0.0-0.1) 09/15/21 04:20 Metamyelocytes # 0.3 K/mm3 09/15/21 04:20 Myelocytes # 0.0 K/mm3 09/15/21 04:20 Promyelocytes # 0.0 K/mm3 09/15/21 04:20 Blast Cells # 0.0 K/mm3 09/15/21 04:20 WBC Morphology Not Reportable 09/15/21 04:20 WBC Morphology TNR 09/15/21 04:20 Hypersegmented Neuts Not Reportable 09/15/21 04:20 Hyposegmented Neuts Not Reportable 09/15/21 04:20 Hypogranular Neuts Not Reportable 09/15/21 04:20 Smudge Cells Not Reportable 09/15/21 04:20 Toxic Granulation Not Reportable 09/15/21 04:20 Toxic Vacuolation Not Reportable 09/15/21 04:20 Dohle Bodies Not Reportable 09/15/21 04:20 Pelger-[place]uet Anomaly Not Reportable 09/15/21 04:20 Radha Rods Not Reportable 09/15/21 04:20 Platelet Estimate Consistent w auto 09/15/21 04:20 Clumped Platelets Not Reportable 09/15/21 04:20 Plt Clumps, EDTA Not Reportable 09/15/21 04:20 Large Platelets Not Reportable 09/15/21 04:20 Giant Platelets Not Reportable 09/15/21 04:20 Platelet Satelliting Not Reportable 09/15/21 04:20 Plt Morphology Comment Not Reportable 09/15/21 04:20 RBC Morphology Normal 09/15/21 04:20 Dimorphic RBCs Not Reportable 09/15/21 04:20 Polychromasia Not Reportable 09/15/21 04:20 Hypochromasia Not Reportable 09/15/21 04:20 Poikilocytosis Not Reportable 09/15/21 04:20 Anisocytosis Not Reportable 09/15/21 04:20 Microcytosis Not Reportable 09/15/21 04:20 Macrocytosis Not Reportable 09/15/21 04:20 Spherocytes Not Reportable 09/15/21 04:20 Pappenheimer Bodies Not Reportable 09/15/21 04:20 Sickle Cells Not Reportable 09/15/21 04:20 Target Cells Not Reportable 09/15/21 04:20 Tear Drop Cells Not Reportable 09/15/21 04:20 Ovalocytes Not Reportable 09/15/21 04:20 Helmet Cells Not Reportable 09/15/21 04:20 [place] Bodies Not Reportable 09/15/21 04:20 [place] Rings Not Reportable 09/15/21 04:20 [place] Cells Not Reportable 09/15/21 04:20 Bite Cells Not Reportable 09/15/21 04:20 Crenated Cell Not Reportable 09/15/21 04:20 Elliptocytes Not Reportable 09/15/21 04:20 Acanthocytes (Spur) Not Reportable 09/15/21 04:20 Rouleaux Not Reportable 09/15/21 04:20 Hemoglobin C Crystals Not Reportable 09/15/21 04:20 Schistocytes Not Reportable 09/15/21 04:20 Malaria parasites Not Reportable 09/15/21 04:20 Rene Bodies Not Reportable 09/15/21 04:20 Hem Pathologist Commnt No 09/15/21 04:20 Sodium 139 mmol/L (137-145) 09/16/21 09:32 Potassium 4.1 mmol/L (3.6-5.0) 09/16/21 09:32 Chloride 102.1 mmol/L (98-107) 09/16/21 09:32 Carbon Dioxide 23 mmol/L (22-30) 09/16/21 09:32 Anion Gap 18 mmol/L 09/16/21 09:32 BUN 8 mg/dL (9-20) L 09/16/21 09:32 Creatinine 0.7 mg/dL (0.8-1.3) L 09/16/21 09:32 Estimated GFR > 60 ml/min 09/16/21 09:32 BUN/Creatinine Ratio 11 % 09/16/21 09:32 Glucose 86 mg/dL (75-100) 09/16/21 09:32 Lactic Acid 0.90 mmol/L (0.7-2.0) 09/14/21 20:29 Calcium 8.7 mg/dL (8.4-10.2) 09/16/21 09:32 Total Bilirubin 0.90 mg/dL (0.1-1.2) 09/16/21 09:32 AST 24 units/L (5-40) 09/16/21 09:32 ALT 47 units/L (7-56) 09/16/21 09:32 Alkaline Phosphatase 89 units/L (35-129) 09/16/21 09:32 Total Protein 8.0 g/dL (6.3-8.2) 09/16/21 09:32 Albumin 3.6 g/dL (3.9-5) L 09/16/21 09:32 Albumin/Globulin Ratio 0.8 % 09/16/21 09:32 Vancomycin Trough 11.7 ug/mL (5.0-20.0) 09/16/21 22:43 Microbiology: Microbiology 09/14/21 20:29 Peripheral/Venous Blood Culture - Preliminary NO GROWTH AFTER 48 HOURS 09/14/21 20:29 Peripheral/Venous Blood Culture - Preliminary NO GROWTH AFTER 48 HOURS [place]/IV: Voiding Method Urinal Active Medications - Current Medications Current Medications: Generic Name Dose Route Start Last Admin Trade Name Freq PRN Reason Stop Dose Admin Acetaminophen 650 mg 09/14/21 22:01 Acetaminophen 325 Mg Tab PO Q4H PRN Pain MILD(1-3)/Fever >100.5/MOYER Albuterol 2.5 mg 09/14/21 22:01 Albuterol 2.5 Mg/3 Ml Nebu IH Q4HRT PRN Shortness Of Breath Famotidine 20 mg 09/15/21 10:00 09/16/21 21:01 Famotidine 20 Mg Tab PO 20 mg BID DUSTY Administration Heparin Sodium (Porcine) 5,000 unit 09/15/21 06:00 09/16/21 21:00 Heparin 5,000 Unit/1 Ml Vial SUB-Q 5,000 unit Q8HR DUSTY Administration Hydromorphone HCl 0.5 mg 09/14/21 22:01 Hydromorphone 1 Mg/1 Ml Inj IV Q3H PRN Pain , Severe (7-10) Vancomycin HCl 2,000 mg/ 540 mls @ 250 mls/hr 09/15/21 11:00 09/16/21 22:49 Sodium Chloride IV 250 mls/hr Q12H DUSTY Administration Ampicillin Sodium/Sulbactam Sodium 3 gm in 100 mls @ 200 mls/hr 09/16/21 20:00 09/16/21 21:01 Unasyn/Ns 3 Gm/100 Ml IV 200 mls/hr Q6H DUSTY Administration Protocol Ondansetron HCl 4 mg 09/14/21 22:01 Ondansetron 4 Mg/2 Ml Inj IV Q8H PRN Nausea And Vomiting Oxycodone/Acetaminophen 1 tab 09/14/21 22:01 Oxycodone /Acetaminophen 5-325mg Tab PO Q6H PRN Pain, Moderate (4-6) Sodium Chloride 10 ml 09/15/21 10:00 09/16/21 21:01 Sodium Chloride 0.9% 10 Ml Flush Syringe IV 10 ml BID DUSTY Administration Sodium Chloride 10 ml 09/14/21 22:01 Sodium Chloride 0.9% 10 Ml Flush Syringe IV PRN PRN LINE FLUSH
[2021-09-17] MEDS: AMPICILLIN/SULBACTA 3GM/100ML 3 GM/100 ML BAG IV SCH ×4 (07:49→20:38)
[2021-09-17] MEDS: HEPARIN 5,000 UNIT/1 ML VIAL SUB-Q SCH ×3 (07:50→21:08)
[2021-09-17] MEDS: FAMOTIDINE 20 MG TAB PO SCH ×2 (11:22→21:07)
[2021-09-17] MEDS: VANCOMYCIN 2,000 MG in SODIUM CHLORIDE 0.9% 500 ML 500 ML IV SCH ×2 (12:40→22:39)
--- NOTE | 2021-09-17 12:51 | Consultation ---
History of Present Illness - Reason for Consult Consult date: 09/17/21 - History of Present Illness 25-year-old male past medical history morbid obesity presented to hospital complaining of right calf pain and swelling. This began approximately 4 days prior to admission and started with a small blister that opened and drained. At that time it was clear fluid. [place] any trauma to the leg. Reports having fever at home which improved with Tylenol. Afebrile since admission with a white count 13.6 on admission, now improved to 7.5. Blood cultures no growth so far. Currently on vancomycin and Unasyn. Imaging personally reviewed: Leg x-ray: No abnormality. Review of Systems: Bold if positive, otherwise negative General: fevers, chills, rigors HEENT: visual disturbance, diplopia, eye pain Respiratory: cough, sputum, hemoptysis, shortness of breath Cardiovascular: chest pain, syncope Gastrointestinal: nausea, vomiting, diarrhea, abdominal pain Genitourinary: dysuria, hematuria, flank pain Musculoskeletal: neck pain, back pain, joint pain, edema Neurologic: headaches, seizures Hematologic: easy bruising or bleeding Endocrine: night sweats, acute weight loss Skin: rash, jaundice, redness Psychiatric: suicidal, homicidal ideation Past History Past Medical History: other (Morbid obesity) Past Surgical History: No surgical history Social history: no significant social history Family history: no significant family history Medications and Allergies Allergies Allergy/AdvReac Type Severity Reaction Status Date / Time No Known Allergies Allergy Verified 09/14/21 21:57 Home Medications Medication Instructions Recorded Confirmed Last Taken Type Cyanocobalamin (Vitamin B-12) 1 mcg PO DAILY 09/15/21 09/15/21 09/13/21 09:00 History [Vitamin B12] Active Meds: Active Medications Acetaminophen (Acetaminophen 325 Mg Tab) 650 mg PO Q4H PRN PRN Reason: Pain MILD(1-3)/Fever >100.5/MOYER Albuterol (Albuterol 2.5 Mg/3 Ml Nebu) 2.5 mg IH Q4HRT PRN PRN Reason: Shortness Of Breath Famotidine (Famotidine 20 Mg Tab) 20 mg PO BID [facility] Last Admin: 09/17/21 11:22 Dose: 20 mg Documented by: Heparin Sodium (Porcine) (Heparin 5,000 Unit/1 Ml Vial) 5,000 unit SUB-Q Q8HR [facility] Last Admin: 09/17/21 07:50 Dose: 5,000 unit Documented by: Hydromorphone HCl (Hydromorphone 1 Mg/1 Ml Inj) 0.5 mg IV Q3H PRN PRN Reason: Pain , Severe (7-10) Vancomycin HCl 2,000 mg/ (Sodium Chloride) 540 mls @ 250 mls/hr IV Q12H [facility] Last Admin: 09/16/21 22:49 Dose: 250 mls/hr Documented by: Ampicillin Sodium/Sulbactam Sodium (Unasyn/Ns 3 Gm/100 Ml) 3 gm in 100 mls @ 200 mls/hr IV Q6H [facility]; Protocol Last Admin: 09/17/21 11:21 Dose: 200 mls/hr Documented by: Ondansetron HCl (Ondansetron 4 Mg/2 Ml Inj) 4 mg IV Q8H PRN PRN Reason: Nausea And Vomiting Oxycodone/Acetaminophen (Oxycodone /Acetaminophen 5-325mg Tab) 1 tab PO Q6H PRN PRN Reason: Pain, Moderate (4-6) Sodium Chloride (Sodium Chloride 0.9% 10 Ml Flush Syringe) 10 ml IV BID [facility] Last Admin: 09/16/21 21:01 Dose: 10 ml Documented by: Sodium Chloride (Sodium Chloride 0.9% 10 Ml Flush Syringe) 10 ml IV PRN PRN PRN Reason: LINE FLUSH Physical Examination - Physical Exam Narrative exam: Physical Exam: Constitutional: Alert, cooperative. No acute distress. Head, Ears, Nose: Normocephalic, atraumatic. External ears, nose normal Eyes: Conjunctivae/corneas clear. No icterus. No ptosis. Neck: Supple, no meningeal signs Oral: dentition fair, no thrush Cardiovascular: S1, S2 normal. Respiratory: Good air entry, clear to auscultation bilaterally GI: Soft, non-tender; bowel sounds normal. No peritoneal signs. Musculoskeletal: RLE with opened blister posterior calf, serous drainage. Skin: No rash or abscess Hem/Lymphatic: No palpable cervical or supraclavicular nodes. No lymphangitis Psych: Mood ok. Affect normal Neurological: Awake, alert, oriented. No gross abnormality - Constitutional Vitals: Vital Signs Temp Pulse Resp BP Pulse Ox 98.1 F 87 20 149/83 94 09/17/21 06:36 09/17/21 06:36 09/17/21 06:36 09/17/21 06:36 09/17/21 06:36 Temperature -Last 24 Hours Temperature 98.1 F Temperature 99.0 F Temperature 98.5 F Results - Labs CBC & Chem 7: 09/17/21 05:00 09/16/21 09:32 Labs: Abnormal lab results 09/17/21 Range/Units 05:00 Hgb 11.4 L (11.8-15.2) gm/dl Hct 34.8 L (35.5-45.6) % MCV 83 L (84-94) fl MCH 27 L (28-32) pg [place] % (Auto) 10.6 H (0.0-7.3) % Assessment and Plan Cultures: Blood culture no growth A/P: 25-year-old man past medical history morbid obesity admitted with right leg cellulitis. #Right leg cellulitis: Unclear instigating factor. White count is been improving since admission antibiotics. Unable to get scan due to weight #Morbid obesity: Associated with worse outcomes. BMI sixty Recs: -Continue vancomycin and Unasyn for now. -Unlikely to be able to get CT scan to eval for abscess, though white coutn has been improving on antibiotics and remains afebrile. -Agree with obtaining ultrasound instead to eval for abscess. Thank you for the consult, we will continue to follow. Vesna Lemos MD [facility] O: [phone] F: [phone]
--- NOTE | 2021-09-17 15:01 | Progress Note ---
Assessment and Plan Assessment and plan: 25-year-old male with a history of morbid obesity was brought to the emergency room because of right calf pain and swelling that began 4 days ago. He states that a small blister appeared to the back of his calf and opened and drained on its own. He states it was clear fluid. He denies ever having this in the past. He denies injuring himself or being cut by anything. He denies any numbness or weakness. Patient states that he was running a fever at home but he reports he took Tylenol prior to arrival which she states improved his fever. In the emergency room patient is found to have cellulitis of the right lower extremity. Venous duplex of the leg showed no DVT. (1) Cellulitis of leg, left Current Visit: Yes Status: Acute Plan to address problem: Patient presents with Restless Left Calf with Drainage and Pain. Afebrile and Leukocytosis Improving. Continue vancomycin and change Zosyn to Unasyn. Wound culture ordered but not performed by the nursing. Blood cultures pending. Will consult wound care nurse evaluation. Ultrasound negative for DVT. Ordered CT but could not be performed due to body habitus and ultrasound ordered to rule out abscess. (2) extremely morbid obesity, BMI 60 Current Visit: Yes Status: Acute Plan to address problem: We counseled regarding weight reduction. Outpatient follow-up with bariatric surgeon (3) Leukocytosis, improving Current Visit: Yes Status: Acute Plan to address problem: (4) DVT prophylaxis Current Visit: Yes Status: Acute Plan to address problem: Heparin 5000 units subcu every 8 hours for DVT prophylaxis. Pepcid 20 mg p.o. twice daily for GI prophylaxis. Patient is a full code 09/17: Patient has a ruptured blisters on left calf with some drainage and pain but no significant erythema. Dressing in place ultrasound performed today as patient could not have a CT of the left calf due to body habitus. No worsening pain noted. No fever. Continue antibiotics per ID History Interval history: Patient seen and examined no new complaints. Hospitalist Physical - Physical exam Narrative exam: General appearance: Present: no acute distress, obese, other (Supraglottis, super morbid obesity BMI 60) - EENT Eyes: Present: PERRL, EOM intact ENT: hearing intact - Neck Neck: Present: supple - Respiratory Respiratory effort: normal Respiratory: bilateral: CTA - Cardiovascular Rhythm: regular - Extremities Extremity abnormal: edema - Abdominal General gastrointestinal: soft, non-tender - Integumentary Integumentary: Present: warm, dressing to the left calf, dry skin, mild ulceration to the left calf - Psychiatric Psychiatric: appropriate mood/affect - Neurologic Neurologic: no focal deficits - Constitutional Vitals: Temp Pulse Resp BP Pulse Ox 98.1 F 87 20 149/83 94 09/17/21 06:36 09/17/21 06:36 09/17/21 06:36 09/17/21 06:36 09/17/21 06:36 General appearance: Present: no acute distress, obese, other (Supraglottis, BMI 60) Results - Labs CBC & Chem 7: 09/18/21 04:35 09/18/21 04:35 Labs: Laboratory Last Values WBC 7.5 K/mm3 (4.5-11.0) 09/17/21 05:00 RBC 4.17 M/mm3 (3.65-5.03) 09/17/21 05:00 Hgb 11.4 gm/dl (11.8-15.2) L 09/17/21 05:00 Hct 34.8 % (35.5-45.6) L 09/17/21 05:00 MCV 83 fl (84-94) L 09/17/21 05:00 MCH 27 pg (28-32) L 09/17/21 05:00 MCHC 33 % (32-34) 09/17/21 05:00 RDW 13.7 % (13.2-15.2) 09/17/21 05:00 Plt Count 362 K/mm3 (140-440) 09/17/21 05:00 Lymph % (Auto) 28.3 % (13.4-35.0) 09/17/21 05:00 [place] % (Auto) 10.6 % (0.0-7.3) H 09/17/21 05:00 Eos % (Auto) 2.1 % (0.0-4.3) 09/17/21 05:00 Baso % (Auto) 1.2 % (0.0-1.8) 09/17/21 05:00 Lymph # (Auto) 2.1 K/mm3 (1.2-5.4) 09/17/21 05:00 [place] # (Auto) 0.8 K/mm3 (0.0-0.8) 09/17/21 05:00 Eos # (Auto) 0.2 K/mm3 (0.0-0.4) 09/17/21 05:00 Baso # (Auto) 0.1 K/mm3 (0.0-0.1) 09/17/21 05:00 Add Manual Diff Complete 09/15/21 04:20 Total Counted 100 09/15/21 04:20 Seg Neutrophils % 57.8 % (40.0-70.0) 09/17/21 05:00 Seg Neuts % (Manual) 84.0 % (40.0-70.0) H 09/15/21 04:20 Band Neutrophils % 1.0 % 09/14/21 20:29 Lymphocytes % (Manual) 6.0 % (13.4-35.0) L 09/15/21 04:20 Reactive Lymphs % (Man) 2.0 % 09/15/21 04:20 Monocytes % (Manual) 2.0 % (0.0-7.3) 09/15/21 04:20 Eosinophils % (Manual) 4.0 % (0.0-4.3) 09/15/21 04:20 Metamyelocytes % 2.0 % 09/15/21 04:20 Nucleated RBC % 1.0 % (0.0-0.9) H 09/15/21 04:20 Seg Neutrophils # 4.3 K/mm3 (1.8-7.7) 09/17/21 05:00 Seg Neutrophils # Man 11.7 K/mm3 (1.8-7.7) H 09/15/21 04:20 Band Neutrophils # 0.0 K/mm3 09/15/21 04:20 Lymphocytes # (Manual) 0.8 K/mm3 (1.2-5.4) L 09/15/21 04:20 Abs React Lymphs (Man) 0.3 K/mm3 09/15/21 04:20 Monocytes # (Manual) 0.3 K/mm3 (0.0-0.8) 09/15/21 04:20 Eosinophils # (Manual) 0.6 K/mm3 (0.0-0.4) H 09/15/21 04:20 Basophils # (Manual) 0.0 K/mm3 (0.0-0.1) 09/15/21 04:20 Metamyelocytes # 0.3 K/mm3 09/15/21 04:20 Myelocytes # 0.0 K/mm3 09/15/21 04:20 Promyelocytes # 0.0 K/mm3 09/15/21 04:20 Blast Cells # 0.0 K/mm3 09/15/21 04:20 WBC Morphology Not Reportable 09/15/21 04:20 WBC Morphology TNR 09/15/21 04:20 Hypersegmented Neuts Not Reportable 09/15/21 04:20 Hyposegmented Neuts Not Reportable 09/15/21 04:20 Hypogranular Neuts Not Reportable 09/15/21 04:20 Smudge Cells Not Reportable 09/15/21 04:20 Toxic Granulation Not Reportable 09/15/21 04:20 Toxic Vacuolation Not Reportable 09/15/21 04:20 Dohle Bodies Not Reportable 09/15/21 04:20 Pelger-Huet Anomaly Not Reportable 09/15/21 04:20 Radha Rods Not Reportable 09/15/21 04:20 Platelet Estimate Consistent w auto 09/15/21 04:20 Clumped Platelets Not Reportable 09/15/21 04:20 Plt Clumps, EDTA Not Reportable 09/15/21 04:20 Large Platelets Not Reportable 09/15/21 04:20 Giant Platelets Not Reportable 09/15/21 04:20 Platelet Satelliting Not Reportable 09/15/21 04:20 Plt Morphology Comment Not Reportable 09/15/21 04:20 RBC Morphology Normal 09/15/21 04:20 Dimorphic RBCs Not Reportable 09/15/21 04:20 Polychromasia Not Reportable 09/15/21 04:20 Hypochromasia Not Reportable 09/15/21 04:20 Poikilocytosis Not Reportable 09/15/21 04:20 Anisocytosis Not Reportable 09/15/21 04:20 Microcytosis Not Reportable 09/15/21 04:20 Macrocytosis Not Reportable 09/15/21 04:20 Spherocytes Not Reportable 09/15/21 04:20 Pappenheimer Bodies Not Reportable 09/15/21 04:20 Sickle Cells Not Reportable 09/15/21 04:20 Target Cells Not Reportable 09/15/21 04:20 Tear Drop Cells Not Reportable 09/15/21 04:20 Ovalocytes Not Reportable 09/15/21 04:20 Helmet Cells Not Reportable 09/15/21 04:20 [place] Bodies Not Reportable 09/15/21 04:20 Bard Rings Not Reportable 09/15/21 04:20 [place] Cells Not Reportable 09/15/21 04:20 Bite Cells Not Reportable 09/15/21 04:20 Crenated Cell Not Reportable 09/15/21 04:20 Elliptocytes Not Reportable 09/15/21 04:20 Acanthocytes (Spur) Not Reportable 09/15/21 04:20 Rouleaux Not Reportable 09/15/21 04:20 Hemoglobin C Crystals Not Reportable 09/15/21 04:20 Schistocytes Not Reportable 09/15/21 04:20 Malaria parasites Not Reportable 09/15/21 04:20 Rene Bodies Not Reportable 09/15/21 04:20 Hem Pathologist Commnt No 09/15/21 04:20 Sodium 139 mmol/L (137-145) 09/16/21 09:32 Potassium 4.1 mmol/L (3.6-5.0) 09/16/21 09:32 Chloride 102.1 mmol/L (98-107) 09/16/21 09:32 Carbon Dioxide 23 mmol/L (22-30) 09/16/21 09:32 Anion Gap 18 mmol/L 09/16/21 09:32 BUN 8 mg/dL (9-20) L 09/16/21 09:32 Creatinine 0.7 mg/dL (0.8-1.3) L 09/16/21 09:32 Estimated GFR > 60 ml/min 09/16/21 09:32 BUN/Creatinine Ratio 11 % 09/16/21 09:32 Glucose 86 mg/dL (75-100) 09/16/21 09:32 Lactic Acid 0.90 mmol/L (0.7-2.0) 09/14/21 20:29 Calcium 8.7 mg/dL (8.4-10.2) 09/16/21 09:32 Total Bilirubin 0.90 mg/dL (0.1-1.2) 09/16/21 09:32 AST 24 units/L (5-40) 09/16/21 09:32 ALT 47 units/L (7-56) 09/16/21 09:32 Alkaline Phosphatase 89 units/L (35-129) 09/16/21 09:32 Total Protein 8.0 g/dL (6.3-8.2) 09/16/21 09:32 Albumin 3.6 g/dL (3.9-5) L 09/16/21 09:32 Albumin/Globulin Ratio 0.8 % 09/16/21 09:32 Vancomycin Trough 11.7 ug/mL (5.0-20.0) 09/16/21 22:43 Microbiology: Microbiology 09/16/21 18:30 Leg - Left Wound Culture - Preliminary 09/14/21 20:29 Peripheral/Venous Blood Culture - Preliminary NO GROWTH AFTER 48 HOURS 09/14/21 20:29 Peripheral/Venous Blood Culture - Preliminary NO GROWTH AFTER 48 HOURS Carrillo/IV: Voiding Method Urinal Active Medications - Current Medications Current Medications: Generic Name Dose Route Start Last Admin Trade Name Freq PRN Reason Stop Dose Admin Acetaminophen 650 mg 09/14/21 22:01 Acetaminophen 325 Mg Tab PO Q4H PRN Pain MILD(1-3)/Fever >100.5/MOYER Albuterol 2.5 mg 09/14/21 22:01 Albuterol 2.5 Mg/3 Ml Nebu IH Q4HRT PRN Shortness Of Breath Famotidine 20 mg 09/15/21 10:00 09/17/21 11:22 Famotidine 20 Mg Tab PO 20 mg BID DUSTY Administration Heparin Sodium (Porcine) 5,000 unit 09/15/21 06:00 09/17/21 07:50 Heparin 5,000 Unit/1 Ml Vial SUB-Q 5,000 unit Q8HR DUSTY Administration Hydromorphone HCl 0.5 mg 09/14/21 22:01 Hydromorphone 1 Mg/1 Ml Inj IV Q3H PRN Pain , Severe (7-10) Vancomycin HCl 2,000 mg/ 540 mls @ 250 mls/hr 09/15/21 11:00 09/16/21 22:49 Sodium Chloride IV 250 mls/hr Q12H DUSTY Administration Ampicillin Sodium/Sulbactam Sodium 3 gm in 100 mls @ 200 mls/hr 09/16/21 20:00 09/17/21 11:21 Unasyn/Ns 3 Gm/100 Ml IV 200 mls/hr Q6H DUSTY Administration Protocol Ondansetron HCl 4 mg 09/14/21 22:01 Ondansetron 4 Mg/2 Ml Inj IV Q8H PRN Nausea And Vomiting Oxycodone/Acetaminophen 1 tab 09/14/21 22:01 Oxycodone /Acetaminophen 5-325mg Tab PO Q6H PRN Pain, Moderate (4-6) Sodium Chloride 10 ml 09/15/21 10:00 09/16/21 21:01 Sodium Chloride 0.9% 10 Ml Flush Syringe IV 10 ml BID DUSTY Administration Sodium Chloride 10 ml 09/14/21 22:01 Sodium Chloride 0.9% 10 Ml Flush Syringe IV PRN PRN LINE FLUSH
--- NOTE | 2021-09-17 15:30 | Ultrasound Report ---
Targeted right calf Ultrasound HISTORY: Right calf swelling, rule out abscess.. TECHNIQUE: Grayscale and color Doppler imaging of the right calf was performed. COMPARISON: None. FINDINGS: Targeted sonographic evaluation of the right calf in the area of concern was performed. The re is no evidence of focal fluid collection to suggest the presence of abscess. Subtle skin thickenin g and edematous appearance of the subcutaneous tissue in this region may represent some degree of juan luis lulitis. IMPRESSION: No evidence of abscess within the right calf at the area of concern. Subtle skin thickening and edematous appearance of the subcutaneous tissues in this region may repres ent some degree of cellulitis. Signer Name: Alireza De Leon MD Signed: 09/17/2021 3:25 PM Workstation Name: [id number]
[2021-09-18] MEDS: AMPICILLIN/SULBACTA 3GM/100ML 3 GM/100 ML BAG IV SCH ×2 (02:33→08:16)
[2021-09-18 05:00] LABS: Hematocrit 33.9 % (35.5-45.6); Mean Corpuscular HGB Conc 32 % (32-34); Mean Corpuscular Volume 82 fl (84-94); Platelet Count 362 K/mm3 (140-440); Red Blood Count 4.11 M/mm3 (3.65-5.03); Red Cell Distribution Width 14.4 % (13.2-15.2)
[2021-09-18 05:24] LABS: BUN/Creatinine Ratio 9; Blood Urea Nitrogen 9 mg/dL (9-20); Calcium 8.5 mg/dL (8.4-10.2); Hemolysis Index 0
[2021-09-18] MEDS: HEPARIN 5,000 UNIT/1 ML VIAL SUB-Q SCH (06:12)
[2021-09-18 06:36] VITALS: BP 162/76
--- NOTE | 2021-09-18 08:58 | Discharge Summary ---
Providers - Providers Date of Admission: 09/15/21 01:10 EST Attending physician: AUGUSTO BAUTISTA MD 09/14/21 22:03 Consult to Wound/ET Nurse [CONS] Routine Reason For Exam: wound eval 09/16/21 17:48 Consult to Physician [CONS] Routine Comment: Consulting Provider: NAVID MOCTEZUMA Physician Instructions: Reason For Exam: Cellulitis/abscess in the left calf Primary care physician: DRY WALL FINISHER Hospitalization Reason for admission: Calf abscess Condition: Stable Hospital course: 25-year-old male with a history of morbid obesity was brought to the emergency room because of right calf pain and swelling that began 4 days ago. He states that a small blister appeared to the back of his calf and opened and drained on its own. He states it was clear fluid. He denies ever having this in the past. He denies injuring himself or being cut by anything. He denies any numbness or weakness. Patient states that he was running a fever at home but he reports he took Tylenol prior to arrival which she states improved his fever. In the emergency room patient is found to have cellulitis of the right lower extremity. Venous duplex of the leg showed no DVT. (1) Cellulitis of leg, left Current Visit: Yes Status: Acute Plan to address problem: Patient presents with Restless Left Calf with Drainage and Pain. Afebrile and Leukocytosis Improving. Continue vancomycin and change Zosyn to Unasyn. Wound culture ordered but not performed by the nursing. Blood cultures pending. Will consult wound care nurse evaluation. Ultrasound negative for DVT. Ordered CT but could not be performed due to body habitus and ultrasound ordered to rule out abscess. (2) extremely morbid obesity, BMI 60 Current Visit: Yes Status: Acute Plan to address problem: We counseled regarding weight reduction. Outpatient follow-up with bariatric surgeon (3) Leukocytosis, improving Current Visit: Yes Status: Acute Plan to address problem: (4) DVT prophylaxis Current Visit: Yes Status: Acute Plan to address problem: Heparin 5000 units subcu every 8 hours for DVT prophylaxis. Pepcid 20 mg p.o. twice daily for GI prophylaxis. Patient is a full code 09/17: Patient has a ruptured blisters on left calf with some drainage and pain but no significant erythema. Dressing in place ultrasound performed today as patient could not have a CT of the left calf due to body habitus. No worsening pain noted. No fever. Continue antibiotics per ID 09/18: Ultrasound did not reveal any abscess or worsening cellulitis. No DVT noted. Discussed with ID and will discharge on Augmentin and Keflex 1gm q6hrs. Follow with ID and wound care clinic Extensive counseling provided to the patient the management and risk of not following up. He verbalized understanding Disposition: 01 HOME / SELF CARE / HOMELESS Final Discharge Diagnosis (Prints w/discharge instructions): Cellulitis of leg, left Time spent for discharge: 35 minutes Core Measure Documentation - Palliative Care Palliative Care/ Comfort Measures: Not Applicable - Core Measures Any of the following diagnoses?: none Exam - Physical Exam Narrative exam: General appearance: Present: no acute distress, obese, other (Supraglottis, super morbid obesity BMI 60) - EENT Eyes: Present: PERRL, EOM intact ENT: hearing intact - Neck Neck: Present: supple - Respiratory Respiratory effort: normal Respiratory: bilateral: CTA - Cardiovascular Rhythm: regular - Extremities Extremity abnormal: edema - Abdominal General gastrointestinal: soft, non-tender - Integumentary Integumentary: Present: warm, dressing to the left calf, dry skin, mild ulc eration to the left calf - Psychiatric Psychiatric: appropriate mood/affect - Neurologic Neurologic: no focal deficits - Constitutional Vitals: Temp Pulse Resp BP Pulse Ox 100.1 F H 99 H 20 162/76 98 09/18/21 06:36 09/18/21 06:36 09/18/21 06:36 09/18/21 06:36 09/18/21 06:36 Plan Activity: advance as tolerated, fall precautions Diet: low fat Wound: per your surgeon's advice, per wound nurse instructions Special Instructions: record daily weights, record daily BP diary Follow up with: PRIMARY MD LUKAS [Primary Care Provider] - 3-5 Days NAVID MOCTEZUMA MD [Staff Physician] - 7 Days [facility] [Outside] - 7 Days Prescriptions: Amoxicillin/Potassium Clav [Augmentin 875-125 Tablet] 1 each PO BID #20 tablet cephALEXin [Keflex] 1,000 mg PO Q6HR #80 capsule Famotidine [Pepcid] 20 mg PO BID #30 tablet Saccharomyces Boulardii [Probiotic] 250 mg PO DAILY #30 capsule
[2021-09-18] MEDS: FAMOTIDINE 20 MG TAB PO SCH (09:02)
== END 2021-09-18 11:50 | disposition home health service (06) | DRG 603 ==
LOC: ED 19:51 → 3A 09-15 01:10
PROVIDERS: ADMIT Hospitalist; ATTEND Internal Medicine
DX: L03.115 Cellulitis of right lower limb (principal); Z68.44 Body mass index [BMI] 60.0-69.9, adult; E66.01 Morbid (severe) obesity due to excess calories; D72.829 Elevated white blood cell count, unspecified
CPT/HCPCS: 36415; 80048; 80053; 80202; 82140; 85007; 85025; 85027; 87040; 87116; 87186; 94640; G0378; J0295; J1644; J2543; J3370; J7040